=== PATIENT | male | born 1950 | race Caucasian/White ===

== ENCOUNTER 2021-06-12 06:28 | Emergency (ER) | payer MEDICARE, OTHER ==
--- OUTSIDE RECORDS SUMMARY | 2021-06-12 06:34 | XMS REPORT | Clinical Summary ---
Author Author [facility] Organization [facility] Address Unknown Phone Unavailable Care Team Providers Care Distribution Systems Serviceperson Name Role Phone PCP Unavailable Allergies Not on File Medications Not on file Active Problems Not on file Social History Date Tobacco Use Types Packs/Day Years Used Never Assessed Sex Assigned at Date Recorded Not on file Last Filed Vital Signs Not on file Plan of Treatment Not on file Results Not on filefrom Last 3 Months
[2021-06-12] MEDS ORDERED: ASPIRIN 81 MG CHEW (CHILDREN'S ASA) PO ONE (07:00)
--- NOTE | 2021-06-12 07:07 | ED Chest Pain ---
General Chief Complaint: General Problems/Pain Stated Complaint: NAUSEA;DIZZINESS Nursing Triage Note: Pt complaining of dizziness and nausea. Pt states he feels similar to when he had an WA in 2012. Pt denies any chest pain Source: patient Exam Limitations: no limitations (SMOOTH STERN MD) History of Present Illness Date Seen by Provider: Jun 12, 2021 Time Seen by Provider: 06:45 Initial Comments 71-year-old male with past medical history of CAD with 1 stent, hypertension, hyperlipidemia coming in due to waking up at 530 this morning with general malaise and a similar feeling he had in 2012 when he had a heart attack. He said he woke up nauseous, feeling generally weak, lightheaded. He said he did not have any chest pain, but he never did in 2012 as well. He said the room was a little spinning when he would move around and better when he was not moving. He was able to ambulate and get here, and drove here. He never vomited, no fever, chills, cough, shortness of breath, weakness, numbness, vision changes, or any other concerns. 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 He says there is a chance he is dehydrated as well. (SMOOTH STERN MD) Allergies and Home Medications Allergies Coded Allergies: No Known Drug Allergies (Unverified , 06/12/21) Patient Home Medication List Home Medication List Reviewed: Yes (SMOOTH STERN MD) Review of Systems Review of Systems Constitutional: No fever; malaise EENTM: No Blurred Vision Respiratory: Denies Cough, Denies Shortness of Air Cardiovascular: Denies Chest Pain, Denies Irregular Heart Rate, Denies Palpitations, Denies Syncope Gastrointestinal: Denies Abdominal Pain, Denies Diarrhea, Denies Nausea, Denies Vomiting Genitourinary: No Symptoms Reported Musculoskeletal: no symptoms reported Skin: no symptoms reported Psychiatric/Neurological: No Symptoms Reported Endocrine: No Symptoms Reported Hematologic/Lymphatic: No Symptoms Reported (SMOOTH STERN MD) All Other Systems Reviewed Negative Unless Noted: Yes (SMOOTH STERN MD) Past Pamnqmz-Mfegbb-Hvqrdm Hx Patient Social History Tobacco Use?: No Use of E-Cig and/or Vaping dev: No Substance use?: No Pt feels they are or have been: No (SMOOTH STERN MD) Tobacco Use?: No Smoking Status: Never a Smoker Smokeless Tobacco Frequency: Never a User (DIANELYS SINGH MD) Past Medical History Surgeries: Yes Cardiac (stent) (SMOOTH STERN MD) Surgery/Hospitalization HX: CAD with MARIANO in RCA February 2012 at [facility]. Surgeries: Yes Coronary Stent (RCA in February 2012), Orthopedic (shoulder surgery 1980) Respiratory: No Cardiac: Yes Coronary Artery Disease, Heart Attack (February 2012), High Cholesterol, Hypertension Genitourinary: Yes Kidney Stones Gastrointestinal: No Endocrine: No Psychosocial: No (DIANELYS SINGH MD) Physical Exam Vital Signs Vital Signs - First Documented 06/12/21 06:32 Pulse 53 Resp 18 B/P (MAP) 155/80 (105) Pulse Ox 99 O2 Delivery Room Air (DIANELYS SINGH MD) Vital Signs Capillary Refill : Less Than 3 Seconds (SMOOTH STERN MD) Height, Weight, BMI Height: '" Weight: lbs. oz. kg; BMI Method: General Appearance: No Apparent Distress, WD/WN HEENT: PERRL/EOMI, Normal ENT Inspection, Pharynx Normal Neck: Full Range of Motion, Normal Inspection, Non Tender, Supple Respiratory: Chest Non Tender, Lungs Clear, Normal Breath Sounds, No Accessory Muscle Use, No Respiratory Distress Cardiovascular: Regular Rate, Rhythm, No Edema, Normal Peripheral Pulses Gastrointestinal: Normal Bowel Sounds, Non Tender, Soft; No Distended, No Guarding Extremity: Normal Capillary Refill, Normal Inspection, Normal Range of Motion, Non Tender, No Calf Tenderness Neurologic/Psychiatric: Alert, Oriented x3, No Motor/Sensory Deficits, Normal Mood/Affect, guitar teacher II-XII Norm as Tested; No Abnormal Cerebellar Tests, No Abnormal Gait, No Aphasia, No Facial Droop; Other (Normal [id number]-rb-cfvc, normal weia-nh-qqqr, normal tandem gait) Skin: Normal Color, Warm/Dry Lymphatic: No Adenopathy (SMOOTH STERN MD) Progress/Results/Core Measures Results/Orders Lab Results Laboratory Tests Test 06/12/21 06:42 06/12/21 08:41 Range/Units White Blood Count 5.8 4.3-11.0 10^3/uL Red Blood Count 4.82 4.30-5.52 10^6/uL Hemoglobin 14.7 13.3-17.7 g/dL Hematocrit 45 40-54 % Mean Corpuscular Volume 93 80-99 fL Mean Corpuscular Hemoglobin 30 25-34 pg Mean Corpuscular Hemoglobin Concent 33 32-36 g/dL Red Cell Distribution Width 13.3 10.0-14.5 % Platelet Count 229 130-400 10^3/uL Mean Platelet Volume 9.5 9.0-12.2 fL Immature Granulocyte % (Auto) 0 % Neutrophils (%) (Auto) 44 42-75 % Lymphocytes (%) (Auto) 39 12-44 % Monocytes (%) (Auto) 10 0-12 % Eosinophils (%) (Auto) 6 0-10 % Basophils (%) (Auto) 1 0-10 % Neutrophils # (Auto) 2.6 1.8-7.8 X 10^3 Lymphocytes # (Auto) 2.3 1.0-4.0 X 10^3 Monocytes # (Auto) 0.6 0.0-1.0 X 10^3 Eosinophils # (Auto) 0.4 H 0.0-0.3 10^3/uL Basophils # (Auto) 0.1 0.0-0.1 10^3/uL Immature Granulocyte # (Auto) 0.0 0.0-0.1 10^3/uL Prothrombin Time 14.2 12.2-14.7 SEC INR Comment 1.0 0.8-1.4 Activated Partial Thromboplast Time 26 24-35 SEC Sodium Level 140 135-145 MMOL/L Potassium Level 4.5 3.6-5.0 MMOL/L Chloride Level 104 98-107 MMOL/L Carbon Dioxide Level 24 21-32 MMOL/L Anion Gap 12 5-14 MMOL/L Blood Urea Nitrogen 20 H 7-18 MG/DL Creatinine 0.86 0.60-1.30 MG/DL Estimat Glomerular Filtration Rate 88 BUN/Creatinine Ratio 23 Glucose Level 124 H 70-105 MG/DL Calcium Level 9.6 8.5-10.1 MG/DL Corrected Calcium 9.3 8.5-10.1 MG/DL Magnesium Level 2.0 1.6-2.4 MG/DL Total Bilirubin 0.9 0.1-1.0 MG/DL Aspartate Amino Transf (AST/SGOT) 27 5-34 U/L Alanine Aminotransferase (ALT/SGPT) 24 0-55 U/L Alkaline Phosphatase 59 40-136 U/L Troponin I < 0.30 < 0.30 <0.30 NG/ML Pro-B-Type Natriuretic Peptide 30.9 <75.0 PG/ML Total Protein 7.3 6.4-8.2 GM/DL Albumin 4.4 3.2-4.5 GM/DL (DIANELYS SINGH MD) My Orders Orders - DIANELYS SINGH MD Ns Iv 1000 Ml (Sodium Chloride 0.9%) (06/12/21 07:14) Ondansetron Injection (Zofran Injectio (06/12/21 07:14) (DIANELYS SINGH MD) Medications Given in ED Current Medications Medications Dose Ordered Sig/Gustavo Route Start Time Stop Time Status Last Admin Dose Admin Aspirin 324 mg ONCE ONCE PO 06/12/21 07:00 06/12/21 07:02 DC 06/12/21 07:12 324 MG (DIANELYS SINGH MD) Vital Signs/I&O 06/12/21 06/12/21 06:32 09:35 Pulse 53 57 Resp 18 18 B/P (MAP) 155/80 (105) 123/75 Pulse Ox 99 99 O2 Delivery Room Air Room Air (DIANELYS SINGH MD) Blood Pressure Mean: 105 Progress Progress Note : Progress Note 71-year-old male with above history coming in due to general malaise, nausea, lightheadedness similar to his first episode of a heart attack in 2011. ABCs were intact and vitals were stable on presentation. He is bradycardic in the 50s, but he says this is not unusual for him as he is in pretty good shape. Initial EKG sinus bradycardia without any ischemic changes. Repeat EKG roughly 15 minutes later similar without any dynamic changes. IV was placed and basic labs were obtained as well as cardiac biomarkers. We will also get repeat biomarkers 2 hours after presentation given he presented here so soon. Although he is describing some vertigo with the room spinning earlier, he has no vertigo currently. He has a normal tandem gait and cerebellar exam otherwise. No concern for any type of posterior stroke at this time. He has been exercising more frequently, and says he has been trying to lose weight, eating less, and it is possible he is slightly volume down. We will give him a bolus of IV fluids as well and reassess. He was given full dose aspirin in the meantime. Differential includes ACS, dehydration, much less likely PE given his symptoms do not fit versus some other etiology. He is overall well-appearing however, and if his labs are reassuring I believe it is likely he could be discharged. He will be signed out to the oncoming physician pending the lab work. (SMOOTH STERN MD) Progress Note #1: Time: 07:00 Progress Note I assumed care of the patient from Dr. Stern at shift change. Patient having no chest pain and on my assessment at shift change he states he was feeling better than when he first woke up at 530 am. He has some mild nausea still but it is improved from initial onset as well. He continues to deny chest pains, shortness of breath, sweating. No acute changes on ECG tracing x 2. Awaiting labs and CXR. Will give IVF for hydration and a dose of zofran for nausea. Progress Note #2: Time: 07:38 Progress Note On review of the [facility] from [facility] from February 2012 when he had his WA, he had an inferior WA. At that time he had ST elevation in the inferior leads. He was treated with TNKase and heparin here in the ED and flown to [facility]. He had recurrent chest pain and ST elevation after arriving at [place] and went to the [facility]. There he had one drug-eluting stent placed in the mid RCA. His post cath echocardiogram showed a normal EF. He has done well since the heart attack and cardiac cath procedure in 2011. He continues to follow with the cardiology group at [facility]. He states he was last seen by them the summer and follows yearly. His EKG is not showing any acute ST elevation or ischemic changes. His chest x- ray appears clear without acute process. Awaiting labs. Progress Note #3: Time: 09:24 Progress Note Patient continues to feel well without any further symptoms. His repeat troponin was negative as were all of his initial labs. Counseled on follow-up and return precautions. 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 Otherwise stay well-hydrated and get plenty of rest and continue on his regular home medications. (DIANELYS SINGH MD) Initial ECG Impression Date: Jun 12, 2021 Initial ECG Impression Time: 06:31 Initial ECG Rate: 50 Initial ECG Rhythm: S.Lamin Comment No significant ST or T wave abnormalities, repeat EKG performed 15 minutes later and appears almost identical (SMOOTH STERN MD) EKG : EKG Time: 06:48 Rate: 51 Rhythm: Normal Sinus ECG Comparisson: Unchanged ECG Impression: Normal Comment Normal sinus rhythm with a heart rate of 51 bpm. MO interval 162 ms. QT interval 463 ms with a QTc interval 427 ms. There is no acute ST elevation. Appears similar to the tracing from 6:31 AM (DIANELYS SINGH MD) Diagnostic Imaging Diagonstic Imaging: Xray Plain Films/CT/US/NM/MRI: chest Comments NAME: [facility] REC#: [id number] PT STATUS: REG ER : 1950 PHYSICIAN: SMOOTH STERN MD ADMIT DATE: 06/12/21/ER FS Draft Date of Exam:06/12/21 CHEST 1 VIEW AP/PA ONLY Indication: Chest pain COMPARISON: None available. TECHNIQUE: Single radiograph chest dated 06/12/2021 FINDINGS: The cardiac silhouette is within normal limits in size. No significant pulmonary vascular congestion. The lungs are clear. No pleural effusion. No pneumothorax. No acute osseous abnormality. IMPRESSION: No acute cardiopulmonary abnormality. Dictated on workstation # [id number] Dict: 06/12/2114 Trans: 06/12/21 0719 [facility] [id number] Interpreted by: JESSICA SIMPSON MD Electronically signed by: Reviewed: Reviewed by Me (DIANELYS SINGH MD) Departure Impression Primary Impression: Light headed Additional Impression: Nausea Disposition: 01 HOME, SELF-CARE Condition: Improved Departure-Patient Inst. Decision time for Depature: 09:25 (DIANELYS SINGH MD) Referrals: MINISTERIO YEH MD (PCP/Family) Primary Care Physician Patient Instructions: Dizziness, Adult ED, Nausea and Vomiting, Adult ED Add. Discharge Instructions: Your heart tests look good today and no elevation of heart enzymes or changes on electrocardiogram to show a recurrent heart attack or heart damage. Stay well hydrated and make sure you are getting plenty of rest. Continue on your home medicines. If you have recurrent symptoms or concerns check back with your doctor or Finance Business Partner All discharge instructions reviewed with patient and/or family. Voiced understanding. SMOOTH STERN MD Jun 12, 2021 07:07 DIANELYS SINGH MD Jun 12, 2021 07:43
[2021-06-12] MEDS ORDERED: ONDANSETRON 4 MG/2 ML (SDV) Z0FRAN IVP STA (07:14)
[2021-06-12] MEDS ORDERED: NS IV 1000 ML 1,000 ML IV STA (07:14)
[2021-06-12 07:17] LABS: WHITE BLOOD COUNT 5.8 10^3/uL (4.3-11.0)
[2021-06-12 07:18] LABS: BASOPHILS % (AUTO) 1 % (0-10); EOSINOPHILS % (AUTO) 6 % (0-10); HEMATOCRIT 45 % (40-54); HEMOGLOBIN 14.7 g/dL (13.3-17.7); LYMPHOCYTES % (AUTO) 39 % (12-44); MEAN CORPUSCULAR HEMOGLOBIN 30 pg (25-34); MEAN CORPUSCULAR HGB CONC 33 g/dL (32-36); MEAN CORPUSCULAR VOLUME 93 fL (80-99); MEAN PLATELET VOLUME 9.5 fL (9.0-12.2); MONOCYTES % (AUTO) 10 % (0-12); NEUTROPHILS % (AUTO) 44 % (42-75); PLATELET COUNT 229 10^3/uL (130-400)
[2021-06-12 07:19] LABS: BASOPHILS # (AUTO) 0.1 10^3/uL (0.0-0.1); EOSINOPHILS # (AUTO) 0.4 10^3/uL (0.0-0.3); LYMPHOCYTES # (AUTO) 2.3 X 10^3 (1.0-4.0); MONOCYTES # (AUTO) 0.6 X 10^3 (0.0-1.0); NEUTROPHILS # (AUTO) 2.6 X 10^3 (1.8-7.8)
--- NOTE | 2021-06-12 07:19 | Diagnostic Imaging Report ---
Indication: Chest pain COMPARISON: None available. TECHNIQUE: Single radiograph chest dated 06/12/2021 FINDINGS: The cardiac silhouette is within normal limits in size. No significant pulmonary vascular congestion. The lungs are clear. No pleural effusion. No pneumothorax. No acute osseous abnormality. IMPRESSION: No acute cardiopulmonary abnormality. Dictated by: Dictated on workstation # [id number]
[2021-06-12 07:21] LABS: PROTHROMBIN TIME PATIENT 14.2 SEC (12.2-14.7)
[2021-06-12 07:43] LABS: POTASSIUM 4.5 MMOL/L (3.6-5.0)
[2021-06-12 07:44] LABS: ALBUMIN 4.4 GM/DL (3.2-4.5); BILIRUBIN,TOTAL 0.9 MG/DL (0.1-1.0); CALCIUM 9.6 MG/DL (8.5-10.1); CREATININE SERUM 0.86 MG/DL (0.60-1.30); TOTAL PROTEIN 7.3 GM/DL (6.4-8.2)
[2021-06-12 09:35] VITALS: BP 123/75
== END 2021-06-12 09:35 | disposition home or self-care (01) ==
LOC: EDUNIT# 06:28 → ER FS 06:31
DX: R42 Dizziness and giddiness (principal); I25.2 Old myocardial infarction; I10 Essential (primary) hypertension
CPT/HCPCS: 36415; 71045; 80053; 83735; 83880; 84484; 85025; 85610; 85730; 93005